=== PATIENT | female | born 1980 | race Caucasian/White ===

== ENCOUNTER 2022-02-12 11:33 | Emergency (ER) | payer OTHER, SELFPAY ==
--- NOTE | ~2022-02-12 | XR_ITS ---
XR wrist LT min 3V DATE: 02/12/2022 11:48 INDICATION: Fall. Left wrist pain. TECHNIQUE: 4 views COMPARISON: None FINDINGS: No fracture or dislocation, periosteal reaction or bone destruction. Joint spaces are prese rved. No erosive change or chondrocalcinosis. IMPRESSION: Negative Reviewed, dictated and finalized at location A. IMPRESSION: Negative
[2022-02-12 11:48] VITALS: BP 148/106; PULSE 74; RESP 16; TEMP 36.9; O2SAT 100
[2022-02-12 11:50] VITALS: BP 148/106; PULSE 74; RESP 16; TEMP 36.9; O2SAT 100
--- NOTE | 2022-02-12 11:51 | ED.UPPEXIN ---
HPI - Extremity Injury (Upper) General Chief Complaint: Extremity Injury, Upper Stated Complaint: left wrist injury Time Seen by Provider: 02/12/22 11:51 Source: patient Mode of arrival: ambulatory Limitations: no limitations History of Present Illness HPI narrative: 41-year-old female presented for complaint of left wrist pain and swelling after injury yesterday. She states she slipped and landed on her left hip and hand hyperextending her wrist. She has used an Lonnie wrap and applied ice without relief. Denies bruising, numbness, tingling, weakness. Endorses decreased range of motion to her wrist. Patient is left-hand dominant Related Data Allergies Allergy/AdvReac Type Severity Reaction Status Date / Time No Known Allergies Allergy Unverified 09/11/12 14:12 Review of Systems Review of Systems: CONSTITUTIONAL: Denies body aches, fever, chills CARDIOVASCULAR: Denies chest pain, palpitations, or edema. RESPIRATORY: Denies cough or dyspnea. GASTROINTESTINAL: Denies abdominal pain, nausea, vomiting, or diarrhea. SKIN: Denies rash, itching, or wounds. MUSCULOSKELETAL: Reports left wrist pain NEUROLOGIC: Denies headache, numbness, tingling, or weakness. PSYCH: Denies depression or anxiety. All systems reviewed & are unremarkable except as noted in HPI and below PMFSH Comments At time of signature, I have reviewed and agree with nursing past medical, surgical, social and family history unless otherwise noted. Please see nursing chart for further information. There is no relevant family history pertinent to the presenting complaint Exam Narrative: GENERAL: Well-appearing, well-nourished, and in no acute distress. CHEST: Speaks in full sentences. No respiratory distress. HEART: Regular rate and rhythm. Normal and equal peripheral pulses. EXTREMITIES: Right wrist with swelling to dorsal surface radial aspect, no bruising. Limited ROM to wrist. Normal strength and sensation to fingers. No point tenderness. No open wounds, or obvious deformity; alignment normal, pulse palpable and equal bilaterally, skin warm, dry, pink. Capillary refill less than 3 seconds. SKIN: Warm, dry, no rash. NEURO: Alert and oriented x3. PSYCH: Normal mood and affect Course Course Emergency Course: Patient is aware of diagnosis, understands and agrees to treatment plan. Anticipatory guidance given. Patient agrees to follow-up as directed and is aware of reasons to seek care at the emergency department. Portions of this record may have been created with voice recognition software Level of Care: Express Care Visit Vital Signs Vital signs: Vital Signs Temperature 98.4 F 02/12/22 11:48 Pulse Rate 74 02/12/22 11:48 Respiratory Rate 16 02/12/22 11:48 Blood Pressure 148/106 H 02/12/22 11:48 Pulse Oximetry 100 02/12/22 11:48 Temperature 98.4 F 02/12/22 11:50 Pulse Rate 74 02/12/22 11:50 Respiratory Rate 16 02/12/22 11:50 Blood Pressure 148/106 H 02/12/22 11:50 Pulse Oximetry 100 02/12/22 11:50 Reviewed MDM - Extremity Injury (Upper) MDM Narrative Medical decision making narrative: Xray left wrist negative, reviewed with pt. No concerns for compartment syndrome. No concern for tendon or nerve injury. Advised supportive measures and signs/symptoms to go to the ER. Pt is appropriate for outpt treatment and f/u.. Differential Diagnosis Differential diagnosis: Likely sprain and strain of wrist, fracture of wrist and fracture of hand Imaging Data Radiologist's impression: Ordering Physician: Kate Draper APRN Date of Service: 02/12/22 Procedure(s): XR wrist LT min 3V Accession Number(s): [id number] cc: Kate Draper APRN; UNKNOWN,DOCTOR~ XR wrist LT min 3V DATE: 02/12/2022 11:48 INDICATION: Fall. Left wrist pain.? TECHNIQUE: 4 views? COMPARISON: None? FINDINGS: No fracture or dislocation, periosteal reaction or bone destruction. Joint spaces are preserved. No erosive change
== END 2022-02-12 12:32 | disposition home or self-care (01) ==
PROVIDERS: Emergency Provider Nurse Practitioner Family
DX: S63.502A Unspecified sprain of left wrist, initial encounter (principal); S66.912A Strain of unspecified muscle, fascia and tendon at wrist and hand level, left hand, initial encounter; W01.0XXA Fall on same level from slipping, tripping and stumbling without subsequent striking against object, initial encounter
CPT/HCPCS: 73110; 99203; G0463

== ENCOUNTER 2025-05-21 13:50 | Outpatient (CLI) | payer OTHER, SELFPAY ==
--- NOTE | ~2025-05-21 | MM_ITS ---
EXAMINATION: MM scrn aneesh implant BI w twyla HISTORY: Screening TECHNIQUE: Craniocaudal and mediolateral oblique 3-D tomosynthesis images were obtained and synthetic 2-D images were generated. CAD analysis was submitted and interpreted. Implant displacement is were obtained. COMPARISON: No prior mammogram is available for comparison at this institution. BREAST PARENCHYMAL COMPOSITION: The breasts are extremely dense, which lowers the sensitivity of mammography. FINDINGS: There is no evidence of suspicious mass, calcification, or architectural distortion to suggest malignancy in either breast. Bilateral breast implants. IMPRESSION: 1. No mammographic evidence of malignancy. Recommend routine screening mammography in one year. BI-RADS Category 1: Negative Reviewed, dictated and finalized at location Q. IMPRESSION: 1. No mammographic evidence of malignancy. Recommend routine screening mammogra phy in one year. BI-RADS Category 1: Negative
== END 2025-05-21 13:51 | disposition home or self-care (01) ==
LOC: ANHFOHIMG 13:51
PROVIDERS: Visit Provider Obstetrics & Gynecology
DX: Z12.31 Encounter for screening mammogram for malignant neoplasm of breast (principal)
CPT/HCPCS: 77063; 77067